=== PATIENT | male | born 1960 | race Asian ===

== ENCOUNTER 2021-12-31 22:54 | Emergency (ER) | payer BC ==
[~2021-12-31] VITALS: Ht 165.1 cm; Wt 68.0 kg
[2021-12-31 22:58] VITALS: BP_SYST 166
[2021-12-31 23:56] LABS: BASOPHILS % (AUTO) 0.4 % (0.0-2.0); EOSINOPHILS # (AUTO) 0.3 K/uL (0.0-0.4); EOSINOPHILS % (AUTO) 2.7 % (0.0-4.0); HEMATOCRIT 41.2 % (36-54); HEMOGLOBIN 13.7 g/dL (14.0-18.0); LYMPHOCYTES % (AUTO) 18.3 % (20.5-51.5); MEAN CORPUSCULAR HEMOGLOBIN 31 pg (27-31); MEAN CORPUSCULAR HGB CONC 33 % (32-36); MEAN CORPUSCULAR VOLUME 94 fL (79.0-98.0); MONOCYTES # (AUTO) 0.9 K/uL (0.0-1.0); MONOCYTES % (AUTO) 8.1 % (1.7-9.3); NEUTROPHILS # (AUTO) 7.7 K/uL (1.8-7.7); NEUTROPHILS % (AUTO) 70.5 % (40.0-70.0); PLATELET COUNT (AUTO) 232 K/uL (130-430); RED CELL DISTRIBUTION WIDTH 12.9 % (9.0-15.0); WHITE BLOOD COUNT (AUTO) 10.9 K/uL (4.8-10.8)
[2022-01-01 00:07] LABS: CALCIUM 9.2 mg/dL (8.4-11.0); CREATININE 1.04 mg/dL (0.55-1.30); POTASSIUM 3.4 mmol/L (3.5-5.1)
[2022-01-01 00:12] LABS: INR 0.9 (0.80-1.20); PROTHROMBIN TIME 9.9 SECS (9.5-12.5)
[2022-01-01 00:19] LABS: ALBUMIN 3.5 g/dL (3.4-4.8)
[2022-01-01 00:38] LABS: TOTAL BILIRUBIN 0.2 mg/dL (0.0-1.0)
[2022-01-01] MEDS ORDERED: PRED20TA PO (01:03)
[2022-01-01] MEDS ORDERED: ACYC-133 PO (01:03)
[2022-01-01 01:18] VITALS: BP_SYST 148
== END 2022-01-01 01:18 | disposition home or self-care (01) ==
LOC: SED 22:54
DX: R29.810 Facial weakness (principal); I10 Essential (primary) hypertension; Z79.52 Long term (current) use of systemic steroids
CPT/HCPCS: 36415; 70450-TC; 71045; 76376; 80053; 84484; 85025; 85610-TC; 85730-TC; 99285